=== PATIENT | female | born 1940 | race Caucasian/White ===

== ENCOUNTER 2019-01-06 16:14 | Emergency (ER) | payer MEDICARE, OTHER ==
[2019-01-06 16:25] VITALS: BP 190/87
[2019-01-06] MEDS ORDERED: Sodium Chloride 0.9% 10 ML Syringe FLUSH PRN (17:23)
--- NOTE | 2019-01-06 17:23 | EDM.PDOC ---
<Stephanie Hamilton M - Last Filed: 01/06/19 18:02> ED HPI GENERAL MEDICAL PROBLEM - General Chief Complaint: Chest Pain Stated Complaint: UPPER BACK PAIN AND CHEST PAIN Time Seen by Provider: 01/06/19 17:21 Source of Information: Reports: Patient, RN Notes Reviewed History Limitations: Reports: No Limitations - History of Present Illness INITIAL COMMENTS - FREE TEXT/NARRATIVE: 78-year-old female in to the ER with complaints of pain in her chest, epigastric region and shortness of breath. She has had this pain before after she had been on a trip [place] and developed a blood clot. She is not sure of the location but she was on Eliquis. For the past 2 weeks she has had complaints of back pain in the L4-6 region and did see her chiropractor and the pain was much improved. Now it is back for the pas 2 days. She has been using ice and heat but the pain is not any better. She does complain of some right are pain and numbness at times but it is better. She did try and get in with her PCP but was unable to. She sees Michell Dinus. Pt does have a hiatal hernia also that is causing her discomfort to the epigastric region and is causing her gas pressure. She has no pain in her calves but has a bad knee that she received pain injections in. She rates her pain a 5/10. Onset: Gradual Onset Date: 01/04/19 Duration: Hour(s): Location: Reports: Chest, Back Quality: Reports: Burning, Sharp - Related Data Allergies Allergy/AdvReac Type Severity Reaction Status Date / Time Sulfa (Sulfonamide Allergy Hives Verified 01/06/19 16:25 Antibiotics) Home Meds: Home Meds Losartan Potassium 25 mg PO DAILY 03/06/14 [History] ED ROS GENERAL - Review of Systems Review Of Systems: See Below Constitutional: Reports: No Symptoms HEENT: Reports: No Symptoms Respiratory: Reports: Shortness of Breath, Pleuritic Chest Pain (pain following the b) Cardiovascular: Reports: Chest Pain, Blood Pressure Problem Endocrine: Reports: No Symptoms GI/Abdominal: Reports: Abdominal Pain (slight discomfort from a hiatal hernia that is causing belching) : Reports: No Symptoms Musculoskeletal: Reports: Back Pain Skin: Reports: No Symptoms Neurological: Reports: No Symptoms Psychiatric: Reports: No Symptoms Hematologic/Lymphatic: Reports: No Symptoms Immunologic: Reports: No Symptoms ED EXAM, GENERAL - Physical Exam Exam: See Below Exam Limited By: No Limitations General Appearance: Alert, WD/WN, No Apparent Distress Ears: Normal External Exam, Normal Canal, Hearing Grossly Normal, Normal TMs Nose: Normal Inspection, Normal Mucosa Throat/Mouth: Normal Inspection, Normal Lips Head: Atraumatic, Normocephalic Neck: Normal Inspection, Supple, Non-Tender, Full Range of Motion Respiratory/Chest: No Respiratory Distress, Lungs Clear, Normal Breath Sounds, No Accessory Muscle Use, Other (pain with breathing and taking a deep breath. ) Cardiovascular: Normal Peripheral Pulses, Regular Rate, Rhythm, No Edema, No Gallop, No JVD, No Murmur, No Rub GI/Abdominal: Normal Bowel Sounds, Soft, No Organomegaly, No Distention, No Abnormal Bruit, No Mass, Tender (Female) Exam: Deferred Back Exam: Normal Inspection, Full Range of Motion, Other (pain along the bra line that hurts with inspiration and with movement. No pain on palpation.) Extremities: Normal Inspection, Normal Range of Motion, No Pedal Edema, Normal Capillary Refill Neurological: Alert, Oriented, CN II-XII Intact, Normal Cognition, Normal Gait, Normal Reflexes, No Motor/Sensory Deficits Psychiatric: Normal Affect, Normal Mood Skin Exam: Warm, Dry, Normal Color, No Rash Lymphatic: No Adenopathy Course - Vital Signs Last Recorded V/S: Last Vital Signs Temp 97.0 F 01/06/19 16:22 Pulse 95 01/06/19 16:22 Resp 11 L 01/06/19 16:22 BP 190/87 H 01/06/19 16:22 Pulse Ox 97 01/06/19 16:22 - Orders/Labs/Meds Orders: Active Orders 24 hr Category Date Time Status EKG 12 Lead [EKG Documentation Completion] [RC] STAT Care 01/06/19 17:23 Active Peripheral IV Care [RC] . DIRECTED Care 01/06/19 17:24 Active Peripheral IV Insertion Adult [OM.PC] Stat Oth 01/06/19 17:24 Ordered Labs: Laboratory Tests 01/06/19 01/06/19 01/06/19 Range/Units 17:40 17:40 17:40 WBC 5.69 (3.98-10.04) K/mm3 RBC 4.53 (3.98-5.22) M/mm3 Hgb 13.8 (11.2-15.7) gm/L Hct 41.9 (34.1-44.9) % MCV 92.5 (79.4-94.8) fl MCH 30.5 (25.6-32.2) pg MCHC 32.9 (32.2-35.5) g/dl RDW Std Deviation 41.7 (36.4-46.3) fL Plt Count 273 (182-369) K/mm3 MPV 9.5 (9.4-12.3) fl Neut % (Auto) 54.8 (34.0-71.1) % Lymph % (Auto) 32.0 (19.3-51.7) % Emmons % (Auto) 11.1 (4.7-12.5) % Eos % (Auto) 1.2 (0.7-5.8) Baso % (Auto) 0.9 (0.1-1.2) % Neut # (Auto) 3.12 (1.56-6.13) K/mm3 Lymph # (Auto) 1.82 (1.18-3.74) K/mm3 Emmons # (Auto) 0.63 H (0.24-0.36) K/mm3 Eos # (Auto) 0.07 (0.04-0.36) K/mm3 Baso # (Auto) 0.05 (0.01-0.08) K/mm3 D-Dimer, Quantitative 0.44 (0.19-0.50) mg/L Sodium 141 (136-145) mEq/L Potassium 3.8 (3.5-5.1) mEq/L Chloride 104 (98-107) mEq/L Carbon Dioxide 27 (21-32) mEq/L Anion Gap 13.8 (5-15) BUN 11 (7-18) mg/dL Creatinine 0.8 (0.55-1.02) mg/dL Est Cr Clr Drug Dosing TNP Estimated GFR (MDRD) > 60 (>60) mL/min BUN/Creatinine Ratio 13.8 L (14-18) Glucose 92 (83-115) mg/dL Calcium 9.2 (8.5-10.1) mg/dL Total Bilirubin 0.6 (0.2-1.0) mg/dL AST 22 (15-37) U/L ALT 32 (14-59) U/L Alkaline Phosphatase 87 (46-116) U/L Troponin I < 0.017 (0.00-0.056) ng/mL Total Protein 7.2 (6.4-8.2) g/dl Albumin 3.8 (3.4-5.0) g/dl Globulin 3.4 gm/dL Albumin/Globulin Ratio 1.1 (1-2) Meds: Medications Discontinued Medications Generic Name Dose Route Start Last Admin Trade Name Freq PRN Reason Stop Dose Admin Sodium Chloride 10 ml 01/06/19 17:23 01/06/19 17:40 Saline Flush FLUSH 10 ml ASDIRECTED PRN Administration Keep Vein Open Departure - Departure Disposition: Home, Self-Care 01 Clinical Impression: Atypical chest pain Referrals: Clotilde Velazquez PA [Primary Care Provider] - Forms: ED Department Discharge Additional Instructions: Continue current medications as prescribed, check your blood pressure twice daily and keep a record for Michell. See Michell at clinic this next Wednesday as planned. Maalox, Mylanta or times if you do seem to be having heartburn discomfort. Consider Pepcid 20 mg daily, available OTC if it seems like you're having more heartburn than usual. Clear liquids until tomorrow noon, than very careful bland diet as tolerated. Return to ED as needed if symptoms worsening in any way. - My Orders Last 24 Hours: My Active Orders 01/06/19 17:23 EKG 12 Lead [EKG Documentation Completion] [RC] STAT 01/06/19 17:24 Peripheral IV Care [RC] . DIRECTED Peripheral IV Insertion Adult [OM.PC] Stat - Assessment/Plan Last 24 Hours: My Active Orders 01/06/19 17:23 EKG 12 Lead [EKG Documentation Completion] [RC] STAT 01/06/19 17:24 Peripheral IV Care [RC] . DIRECTED Peripheral IV Insertion Adult [OM.PC] Stat <Valente Evans - Last Filed: 01/07/19 13:37> ED HPI GENERAL MEDICAL PROBLEM Chest Pain Score (Numeric/FACES): 5 Past Medical History Cardiovascular History: Reports: Blood Clots/VTE/DVT, Hypertension Musculoskeletal History: Reports: Other (See Below) Other Musculoskeletal History: left knee issues; back surgery - Past Surgical History GI Surgical History: Reports: Appendectomy Female Surgical History: Reports: Section, Hysterectomy Social & Family History - Tobacco Use Smoking Status *Q: Former Smoker Used Tobacco, but Quit: Yes Month/Year Tobacco Last Used: 53 yr - Caffeine Use Caffeine Use: Reports: Coffee, Tea - Recreational Drug Use Recreational Drug Use: No Course - Orders/Labs/Meds Orders: Active Orders 24 hr Category Date Time Status EKG 12 Lead [EKG Documentation Completion] [RC] STAT Care 01/06/19 17:23 Active Peripheral IV Care [RC] . DIRECTED Care 01/06/19 17:24 Active Peripheral IV Insertion Adult [OM.PC] Stat Oth 01/06/19 17:24 Ordered Labs: Laboratory Tests 01/06/19 01/06/19 01/06/19 Range/Units 17:40 17:40 17:40 WBC 5.69 (3.98-10.04) K/mm3 RBC 4.53 (3.98-5.22) M/mm3 Hgb 13.8 (11.2-15.7) gm/L Hct 41.9 (34.1-44.9) % MCV 92.5 (79.4-94.8) fl MCH 30.5 (25.6-32.2) pg MCHC 32.9 (32.2-35.5) g/dl RDW Std Deviation 41.7 (36.4-46.3) fL Plt Count 273 (182-369) K/mm3 MPV 9.5 (9.4-12.3) fl Neut % (Auto) 54.8 (34.0-71.1) % Lymph % (Auto) 32.0 (19.3-51.7) % Emmons % (Auto) 11.1 (4.7-12.5) % Eos % (Auto) 1.2 (0.7-5.8) Baso % (Auto) 0.9 (0.1-1.2) % Neut # (Auto) 3.12 (1.56-6.13) K/mm3 Lymph # (Auto) 1.82 (1.18-3.74) K/mm3 Emmons # (Auto) 0.63 H (0.24-0.36) K/mm3 Eos # (Auto) 0.07 (0.04-0.36) K/mm3 Baso # (Auto) 0.05 (0.01-0.08) K/mm3 D-Dimer, Quantitative 0.44 (0.19-0.50) mg/L Sodium 141 (136-145) mEq/L Potassium 3.8 (3.5-5.1) mEq/L Chloride 104 (98-107) mEq/L Carbon Dioxide 27 (21-32) mEq/L Anion Gap 13.8 (5-15) BUN 11 (7-18) mg/dL Creatinine 0.8 (0.55-1.02) mg/dL Est Cr Clr Drug Dosing TNP Estimated GFR (MDRD) > 60 (>60) mL/min BUN/Creatinine Ratio 13.8 L (14-18) Glucose 92 (83-115) mg/dL Calcium 9.2 (8.5-10.1) mg/dL Total Bilirubin 0.6 (0.2-1.0) mg/dL AST 22 (15-37) U/L ALT 32 (14-59) U/L Alkaline Phosphatase 87 (46-116) U/L Troponin I < 0.017 (0.00-0.056) ng/mL Total Protein 7.2 (6.4-8.2) g/dl Albumin 3.8 (3.4-5.0) g/dl Globulin 3.4 gm/dL Albumin/Globulin Ratio 1.1 (1-2) Meds: Medications Discontinued Medications Generic Name Dose Route Start Last Admin Trade Name Freq PRN Reason Stop Dose Admin Sodium Chloride 10 ml 01/06/19 17:23 01/06/19 17:40 Saline Flush FLUSH 10 ml ASDIRECTED PRN Administration Keep Vein Open - Re-Assessments/Exams Free Text/Narrative Re-Assessment/Exam: 01/06/19 19:09 Hx and exam was done J LAURA Villa and myself. I have also examined patient and taken hx. I agree with hx and exam as documented. Her chest x-ray looks fine with what looks like a very small amount of atelectasis left base. No visible infiltrate. Heart size is normal. Troponin and d-dimer did come back normal, white blood count normal other labs relatively normal. Discharge instructions as documented. Departure - Departure Time of Disposition: 19:20 Reason for Transfer *Q: Other (Atypical chest pain) Condition: Fair - My Orders Last 24 Hours: My Active Orders 01/06/19 17:23 EKG 12 Lead [EKG Documentation Completion] [RC] STAT 01/06/19 17:24 Peripheral IV Care [RC] . DIRECTED Peripheral IV Insertion Adult [OM.PC] Stat - Assessment/Plan Last 24 Hours: My Active Orders 01/06/19 17:23 EKG 12 Lead [EKG Documentation Completion] [RC] STAT 01/06/19 17:24 Peripheral IV Care [RC] . DIRECTED Peripheral IV Insertion Adult [OM.PC] Stat
--- NOTE | 2019-01-07 10:59 | CR ---
Chest: Portable view of the chest was obtained. Comparison: Prior chest x-ray of 09/20/10. Minimal discoid atelectasis is noted within both lung bases. Lungs otherwise are clear. Heart size is normal. Tortuous thoracic aorta is incidentally noted. Bony structures are osteopenic. Impression: 1. Incidental findings. Nothing acute is appreciated on portable chest x-ray. Diagnostic code #2
== END 2019-01-06 19:31 | disposition home or self-care (01) ==
LOC: JD.ED 16:14
DX: R07.89 Other chest pain (principal); I10 Essential (primary) hypertension; Z87.891 Personal history of nicotine dependence; Z88.2 Allergy status to sulfonamides; Z88.1 Allergy status to other antibiotic agents
CPT/HCPCS: 36415; 71045; 71045-26; 80053; 84484; 85025; 85379; 93005; 93010; 99284; 99285-25

== ENCOUNTER 2019-08-07 06:50 | Day surgery (SDC) | payer MEDICARE, OTHER ==
[~2019-08-07 06:50] MED LIST: Acetaminophen 325 MG Tab PO SCH; Cyclobenzaprine 10 MG Tab PO PRN; Lidocaine 1%/Sod Bicarbonate in NS 8.4% 1 ML Syringe IDERM PRN; Pregabalin 25 MG Cap PO SCH; Sodium Chloride 0.9% 10 ML Syringe FLUSH PRN; oxyCODONE ER 10 MG TAB.ER PO SCH
[2019-08-07] MEDS: ceFAZolin 1 GM Vial ONE ×2 (07:26→09:24)
[2019-08-07] MEDS: Bupivacaine 0.25% 10 ML SDV ONE ×2 (07:26→09:26)
[2019-08-07] MEDS: Iodine/Sodium Iodide 2% Tincture 30 ML Bottle ONE ×2 (07:27→09:23)
[2019-08-07] MEDS: Vancomycin 1 GM SDV ONE ×2 (07:29→09:29)
[2019-08-07] MEDS: Lactated Ringers 1,000 ML IV SCH ×2 (07:30→10:30)
--- NOTE | 2019-08-07 07:39 | PCM.PREANE ---
Preanesthetic Assessment - Procedure Proposed Procedure: left total knee athroplasty - Anesthesia/Transfusion/Family Hx Anesthesia History: Prior Anesthesia Reaction Type of Anesthesia Reaction: Excessive Nausea/Vomiting (nausea and vomiting with back surgery in 79) Family History of Anesthesia Reaction: No Transfusion History: No Prior Transfusion(s) Intubation History: Unknown - Review of Systems General: No Symptoms, Other (cold sore on lower lip ) Pulmonary: No Symptoms Cardiovascular: No Symptoms Gastrointestinal: No Symptoms, Other (GERD under control ) Neurological: No Symptoms, Tingling (left leg ) Other: Reports: None (blood clot history ) - Physical Assessment NPO Status Date: 08/06/19 NPO Status Time: 21:30 Vital Signs: Last Vital Signs Temp 36.6 C 08/07/19 07:05 Pulse 108 H 08/07/19 07:05 Resp 16 08/07/19 07:05 BP 158/91 H 08/07/19 07:05 Pulse Ox 97 08/07/19 07:05 Height: 1.57 m Weight: 67.132 kg ASA Class: 3 Mental Status: Alert & Oriented x3 Airway Class: Mallampati = 2 Dentition: Reports: Normal Dentition Thyro-Mental Finger Breadths: 2 Mouth Opening Finger Breadths: 4 ROM/Head Extension: Full Lungs: Clear to Auscultation, Normal Respiratory Effort Cardiovascular: Regular Rate, Regular Rhythm, Tachycardia - Lab Values: Laboratory Last Values MRSA (PCR) Negative 07/26/19 14:39 - Allergies Allergies/Adverse Reactions: Allergies Allergy/AdvReac Type Severity Reaction Status Date / Time Sulfa (Sulfonamide Allergy Hives Verified 08/04/19 16:30 Antibiotics) - Blood Blood Available: No - Anesthesia Plan Pre-Op Medication Ordered: None - Acknowledgements Anesthesia Type Planned: Spinal Pt an Appropriate Candidate for the Planned Anesthesia: Yes Alternatives and Risks of Anesthesia Discussed w Pt/Guardian: Yes Pt/Guardian Understands and Agrees with Anesthesia Plan: Yes PreAnesthesia Questionnaire HEENT History: Reports: Allergic Rhinitis, Other (See Below) Other HEENT History: sinus congestion Cardiovascular History: Reports: Blood Clots/VTE/DVT, Hypertension, Other (See Below) Other Cardiovascular History: edema, peripheral artery disease Respiratory History: Reports: Sleep Apnea Other Respiratory History: elevated d-dimer, PE Gastrointestinal History: Reports: GERD, Hiatal Hernia Genitourinary History: Reports: None [employer] History: Reports: None Musculoskeletal History: Reports: Arthritis, Other (See Below) Other Musculoskeletal History: left knee issues; back surgery, lumbar back pain , knee pain, left heel pain Neurological History: Reports: None Psychiatric History: Reports: None Endocrine/Metabolic History: Reports: None Hematologic History: Reports: None Immunologic History: Reports: None Oncologic (Cancer) History: Reports: None Dermatologic History: Reports: Other (See Below) Other Dermatologic History: actinic keratosis, skin lesion, skin tag - Past Surgical History Head Surgeries/Procedures: Reports: None HEENT Surgical History: Reports: Cataract Surgery Cardiovascular Surgical History: Reports: None Respiratory Surgical History: Reports: None GI Surgical History: Reports: Appendectomy, Colonoscopy Female Surgical History: Reports: Section, Hysterectomy, Tubal Ligation Male Surgical History: Reports: None Endocrine Surgical History: Reports: None Neurological Surgical History: Reports: None Musculoskeletal Surgical History: Reports: Other (See Below) Other Musculoskeletal Surgeries/Procedures:: foot surgery, low back surgery Oncologic Surgical History: Reports: None - SUBSTANCE USE Smoking Status *Q: Never Smoker Recreational Drug Use History: No - HOME MEDS Home Medications: Home Meds Cholecalciferol (Vitamin D3) [Vitamin D3] 5,000 unit PO DAILY 08/04/19 [History] Fish Oil/[place]-3 Fatty Acids [Fish Oil 1,000 MG] 1 gm PO DAILY 08/04/19 [History ] Losartan Potassium 50 mg PO DAILY 08/04/19 [History] Lutein/Minerals/Vit A,C & E [Ocuvite] 1 tab PO DAILY 08/04/19 [History] Magnesium 250 mg PO DAILY 08/04/19 [History] Ubidecarenone [Coq-10] 100 mg PO DAILY 08/04/19 [History] hydroCHLOROthiazide [Hydrochlorothiazide] 12.5 mg PO DAILY 08/04/19 [History] Acetaminophen [Tylenol Extra Strength] 500 mg PO ASDIRECTED PRN 08/07/19 [ History] - CURRENT (IN HOUSE) MEDS Current Meds: Current Medications Acetaminophen (Tylenol) 975 mg PO ONETIME JEREMIAH Stop: 08/07/19 12:00 Last Admin: 08/07/19 07:10 Dose: 975 mg Bisacodyl (Dulcolax) 5 mg PO DAILY PRN PRN Reason: Constipation Morphine Sulfate 8 mg/Epinephrine HCl 0.3 mg/Cefuroxime Sodium 750 mg/Ketorolac Tromethamine 30 mg/Sodium Chloride 27.9 ml 0 mg .XX ONETIME ONE Stop: 08/07/19 08:46 Cyclobenzaprine HCl (Flexeril) 5 mg PO BID PRN PRN Reason: Spasms Docusate Sodium (Colace) 100 mg PO BID [facility] Famotidine (Pepcid) 20 mg PO Q12H [facility] Lactated Ringer's (Ringers, Lactated) 1,000 mls @ 125 mls/hr IV ASDIRECTED [facility] Cefazolin Sodium/Dextrose 2 gm (/ Premix) 50 mls @ 100 mls/hr IV Q8H [facility] Stop: 08/08/19 08:29 Ketorolac Tromethamine (Toradol) 15 mg IVPUSH Q6H PRN PRN Reason: Pain Lidocaine/Sodium Bicarbonate (Buffered Lidocaine 1% In Ns 8.4%) 0.25 ml IDERM ONETIME PRN PRN Reason: Prior to IV Start Magnesium Hydroxide (Milk Of Magnesia) 30 ml PO BID PRN PRN Reason: Constipation Morphine Sulfate (Morphine) 2 mg IVPUSH Q2H PRN PRN Reason: Breakthrough Pain Naloxone HCl (Narcan) 0.1 mg IVPUSH Q5M PRN PRN Reason: Oversedation Ondansetron HCl (Zofran) 4 mg IVPUSH Q6H PRN PRN Reason: Nausea/Vomiting Oxycodone HCl (Oxycontin) 10 mg PO ONETIME [facility] Stop: 08/07/19 12:00 Last Admin: 08/07/19 07:10 Dose: 10 mg Oxycodone/Acetaminophen (Percocet 325-5 Mg) 1 - 2 tab PO Q4H PRN PRN Reason: Pain Pregabalin (Lyrica) 50 mg PO ONETIME [facility] Stop: 08/07/19 12:00 Last Admin: 08/07/19 07:10 Dose: 50 mg Rivaroxaban (Xarelto) 10 mg PO DAILY [facility] Senna (Senna) 8.6 mg PO BID PRN PRN Reason: Constipation Sodium Chloride (Saline Flush) 10 ml FLUSH ASDIRECTED PRN PRN Reason: Keep Vein Open Discontinued Medications Bupivacaine HCl (Sensorcaine-Mpf 0.25%) Confirm Administered Dose 30 ml .ROUTE .STK-MED ONE Stop: 08/07/19 07:01 Cefazolin Sodium (Ancef) Confirm Administered Dose 2 gm .ROUTE .[facility]-MED ONE Stop: 08/07/19 07:01 Iodine (Iodine 2% Mild Tincture) Confirm Administered Dose 30 ml .ROUTE .ST- MED ONE Stop: 08/07/19 07:01 Tranexamic Acid (Cyklokapron) Confirm Administered Dose 1,000 mg .ROUTE .ST- MED ONE Stop: 08/07/19 07:00 Vancomycin HCl (Vancomycin) Confirm Administered Dose 1 gm .ROUTE .ST-MED ONE Stop: 08/07/19 07:01
[2019-08-07] MEDS ORDERED: Ondansetron 4 MG/2 ML SDV IVPUSH PRN (07:40)
[2019-08-07] MEDS ORDERED: diphenhydrAMINE 50 MG/ML SDV IVPUSH PRN (07:40)
[2019-08-07] MEDS ORDERED: fentaNYL 100 MCG/2 ML SDV IVPUSH PRN (07:40)
[2019-08-07] MEDS ORDERED: Propofol 200 MG/20 ML SDV ONE ×4 (07:56→13:16)
[2019-08-07] MEDS ORDERED: Ondansetron 4 MG/2 ML SDV ONE (07:57)
[2019-08-07] MEDS ORDERED: Lidocaine 1% 4 ML ONE (07:57)
[2019-08-07] MEDS ORDERED: ceFAZolin 1 GM Vial ONE (08:08)
[2019-08-07] MEDS ORDERED: Esmolol 100 MG/10 ML SDV ONE (08:32)
[2019-08-07] MEDS ORDERED: Morphine 8 MG, EPINEPHrine 0.3 MG, Cefuroxime 750 MG, Ketorolac 30 MG, Sodium Chloride ... ONE ×5 (08:45)
[2019-08-07] MEDS ORDERED: EPINEPHrine 1 MG/ML SDV ONE (08:53)
[2019-08-07] MEDS ORDERED: Ropivacaine 0.5% 5 MG/ML 30 ML SDV ONE (08:54)
[2019-08-07] MEDS ORDERED: Bisacodyl 5 MG Tab PO PRN (09:00)
[2019-08-07] MEDS ORDERED: Magnesium Hydroxide 400 MG/5 ML Susp 30 ML Cup PO PRN (09:00)
[2019-08-07] MEDS ORDERED: Sennosides 8.6 MG Tab PO PRN (09:00)
[2019-08-07] MEDS ORDERED: Naloxone 0.4 MG/ML SDV IVPUSH PRN (09:00)
[2019-08-07] MEDS ORDERED: Morphine 2 MG/ML Syringe IVPUSH PRN (09:00)
[2019-08-07] MEDS ORDERED: Phenylephrine/Normal Saline 100 MCG/ML 10 ML Syringe ONE (09:09)
[2019-08-07] MEDS ORDERED: Lactated Ringers 1,000 ML ONE ×2 (09:11→13:15)
--- NOTE | 2019-08-07 10:10 | PCM.POSTAN ---
POST ANESTHESIA ASSESSMENT - MENTAL STATUS Mental Status: Alert - VITAL SIGNS Vital Signs: Last Vital Signs Temp 36.6 C 08/07/19 09:58 Pulse 88 08/07/19 09:58 Resp 15 08/07/19 09:58 BP 101/62 08/07/19 09:58 Pulse Ox 98 08/07/19 09:58 - RESPIRATORY Respiratory Status: Respiratory Rate WNL, Airway Patent, O2 Saturation Stable - CARDIOVASCULAR CV Status: Pulse Rate WNL, Blood Pressure Stable - GASTROINTESTINAL GI Status: No Symptoms - PAIN Pain Score: 0 - POST OP HYDRATION Hydration Status: Adequate & Stable
--- NOTE | 2019-08-07 10:36 | PCM.SN ---
- Free Text/Narrative Note: Left selective femoral nerve block at the adductor canal for post-procedure pain control under US guidance requested by Dr. Ramirez. Time Out: 1007 Start: 1007 End: 1023 Chart reviewed. Consent signed. Questions answered. Appropriate monitors applied. Time out performed. Left mid-shaft femur identified with ultrasound, scanning medially of femur, the femoral artery in the adductor canal visualized , and the femoral nerve located laterally to the artery. The skin was prepped lateral to the ultrasound probe with chlorahexadine times two. The 21ga 4 insulated block needle was inserted under direct ultrasound guidance into the adductor canal. 25mL of 0.5% ropivacaine with 1:200,000 epinephrine was injected circumferentially around the nerve with intermittent negative aspiration noted. Patient tolerated the procedure well. Sterile technique noted along with sterile gloves, mask, and sterile probe cover. See picture on progress note and vital signs on nurses notes. Block completed in PACU. Mario Cao CRNA
--- NOTE | 2019-08-07 11:37 | CR ---
Left knee: AP and lateral views of the left knee were obtained. Comparison: Previous left knee radiographic study of 10/11/17. Findings: Left knee prosthesis is seen. Components are aligned. Soft tissue air is noted from the surgical procedure. Underlying bony structures are intact. Impression: 1. Satisfactory postop radiographic appearance of recently placed left knee prosthesis. Diagnostic code #2
[2019-08-07] MEDS: Acetaminophen/oxyCODONE 325-5 MG Tab PO PRN ×2 (12:51→20:09)
[2019-08-07] MEDS: Ondansetron 4 MG/2 ML SDV IVPUSH PRN (12:53)
[2019-08-07] MEDS ORDERED: Scopolamine 1.5 MG Transdermal Patch TRDERM PRN (13:20)
[2019-08-07] MEDS: ceFAZolin 2 GM in Premix Bag 1 BAG IV SCH (16:32)
[2019-08-07] MEDS: Benzocaine/Cetylpyridinium/Menthol Lozenge MUCMEM PRN ×2 (18:02→20:09)
[2019-08-07] MEDS: Famotidine 20 MG Tab PO SCH (20:09)
[2019-08-07] MEDS: Docusate Sodium 100 MG Cap PO SCH (20:09)
[2019-08-07] MEDS: Ketorolac 15 MG/ML SDV IVPUSH PRN (20:11)
[2019-08-08] MEDS: ceFAZolin 2 GM in Premix Bag 1 BAG IV SCH ×2 (00:56→08:36)
[2019-08-08] MEDS: Acetaminophen/oxyCODONE 325-5 MG Tab PO PRN ×2 (01:26→14:07)
[2019-08-08] MEDS: Ondansetron 4 MG/2 ML SDV IVPUSH PRN ×2 (01:33→09:46)
[2019-08-08] MEDS: Ketorolac 15 MG/ML SDV IVPUSH PRN (06:36)
--- NOTE | 2019-08-08 08:06 | PCM.SURGPN ---
- General Info Date of Service: 08/08/19 POD#: 1 Functional Status: Reports: Pain Controlled, Tolerating Diet, Ambulating, Urinating, Incentive Spirometry, Other (The pt has nausea earlier today and this has improved. ) - Patient Data Vitals - Most Recent: Last Vital Signs Temp 97.9 F 08/08/19 04:00 Pulse 82 08/08/19 04:00 Resp 18 08/08/19 04:00 BP 112/60 08/08/19 04:00 Pulse Ox 98 08/08/19 04:00 Weight - Most Recent: 148 lb I&O - Last 24 Hours: Intake & Output 08/07/19 08/08/19 08/08/19 22:59 06:59 14:59 Intake Total 2210 850 Output Total 300 1450 Balance 1910 -600 Lab Results Last 24 Hrs: Laboratory Results - last 24 hr 08/08/19 08/08/19 Range/Units 05:45 05:45 WBC 14.96 H (3.98-10.04) K/mm3 RBC 3.31 L (3.98-5.22) M/mm3 Hgb 10.0 L D (11.2-15.7) gm/dl Hct 31.4 L (34.1-44.9) % MCV 94.9 H (79.4-94.8) fl MCH 30.2 (25.6-32.2) pg MCHC 31.8 L (32.2-35.5) g/dl RDW Std Deviation 42.7 (36.4-46.3) fL Plt Count 207 D (182-369) K/mm3 MPV 10.2 (9.4-12.3) fl Sodium 138 (136-145) mEq/L Potassium 4.2 (3.5-5.1) mEq/L Chloride 104 (98-107) mEq/L Carbon Dioxide 29 (21-32) mEq/L Anion Gap 9.2 (5-15) BUN 19 H (7-18) mg/dL Creatinine 0.8 (0.55-1.02) mg/dL Est Cr Clr Drug Dosing 45.62 mL/min Estimated GFR (MDRD) > 60 (>60) mL/min BUN/Creatinine Ratio 23.8 H (14-18) Glucose 115 (83-115) mg/dL Calcium 8.4 L (8.5-10.1) mg/dL Total Bilirubin 0.4 (0.2-1.0) mg/dL AST 18 (15-37) U/L ALT 22 (14-59) U/L Alkaline Phosphatase 58 (46-116) U/L Total Protein 5.6 L (6.4-8.2) g/dl Albumin 2.8 L (3.4-5.0) g/dl Globulin 2.8 gm/dL Albumin/Globulin Ratio 1.0 (1-2) Med Orders - Current: Current Medications Benzocaine/Menthol (Cepacol Sore Throat) 1 lozenge MUCMEM Q2HR PRN PRN Reason: Sore Throat Last Admin: 08/07/19 20:09 Dose: 1 lozenge Bisacodyl (Dulcolax) 5 mg PO DAILY PRN PRN Reason: Constipation Cholecalciferol (Vitamin D3) 5,000 unit PO DAILY [facility] Cyclobenzaprine HCl (Flexeril) 5 mg PO BID PRN PRN Reason: Spasms Docusate Sodium (Colace) 100 mg PO BID [facility] Last Admin: 08/07/19 20:09 Dose: 100 mg Famotidine (Pepcid) 20 mg PO Q12H [facility] Last Admin: 08/07/19 20:09 Dose: 20 mg Hydrochlorothiazide (Hydrochlorothiazide) 12.5 mg PO DAILY [facility] Cefazolin Sodium/Dextrose 2 gm (/ Premix) 50 mls @ 100 mls/hr IV Q8H [facility] Stop: 08/08/19 08:29 Last Admin: 08/08/19 00:56 Dose: 100 mls/hr Losartan Potassium (Cozaar) 50 mg PO DAILY [facility] Magnesium Hydroxide (Milk Of Magnesia) 30 ml PO BID PRN PRN Reason: Constipation Morphine Sulfate (Morphine) 2 mg IVPUSH Q2H PRN PRN Reason: Breakthrough Pain Naloxone HCl (Narcan) 0.1 mg IVPUSH Q5M PRN PRN Reason: Oversedation Ondansetron HCl (Zofran) 4 mg IVPUSH Q6H PRN PRN Reason: Nausea/Vomiting Last Admin: 08/08/19 01:33 Dose: 4 mg Oxycodone/Acetaminophen (Percocet 325-5 Mg) 1 - 2 tab PO Q4H PRN PRN Reason: Pain Last Admin: 08/08/19 01:26 Dose: 2 tab Rivaroxaban (Xarelto) 10 mg PO DAILY [facility] Scopolamine (Transderm-Scop) 1.5 mg TRDERM Q72H PRN PRN Reason: Nausea Last Admin: 08/08/19 06:36 Dose: 1.5 mg Senna (Senna) 8.6 mg PO BID PRN PRN Reason: Constipation Sodium Chloride (Saline Flush) 10 ml FLUSH ASDIRECTED PRN PRN Reason: Keep Vein Open Vit A/Vit C/Vit E/Selen/Cu/Zn/Lutei (Icaps Mv) 1 tab PO DAILY [facility] Discontinued Medications Acetaminophen (Tylenol) 975 mg PO ONETIME [facility] Stop: 08/07/19 12:00 Last Admin: 08/07/19 07:10 Dose: 975 mg Bupivacaine HCl (Sensorcaine-Mpf 0.25%) Confirm Administered Dose 30 ml .ROUTE .STK-MED ONE Stop: 08/07/19 07:01 Last Admin: 08/07/19 09:26 Dose: 30 ml Cefazolin Sodium (Ancef) Confirm Administered Dose 2 gm .ROUTE .STK-MED ONE Stop: 08/07/19 07:01 Last Admin: 08/07/19 09:24 Dose: 2 gm Cefazolin Sodium (Ancef) Confirm Administered Dose 2 gm .ROUTE .STK-MED ONE Stop: 08/07/19 08:09 Morphine Sulfate 8 mg/Epinephrine HCl 0.3 mg/Cefuroxime Sodium 750 mg/Ketorolac Tromethamine 30 mg/Sodium Chloride 27.9 ml 0 mg .XX ONETIME ONE Stop: 08/07/19 08:46 Last Admin: 08/07/19 13:28 Dose: Not Given Diphenhydramine HCl (Benadryl) 25 mg IVPUSH Q6H PRN PRN Reason: pruritis Stop: 08/07/19 18:00 Epinephrine HCl (Adrenalin) Confirm Administered Dose 1 mg .ROUTE .STK-MED ONE Stop: 08/07/19 08:54 Esmolol HCl (Esmolol) Confirm Administered Dose 100 mg .ROUTE .STK-MED ONE Stop: 08/07/19 08:33 Fentanyl (Sublimaze) 50 mcg IVPUSH Q5M PRN PRN Reason: Pain Stop: 08/07/19 18:00 Glycopyrrolate () Confirm Administered Dose 1 mg .ROUTE .STK-MED ONE Stop: 08/07/19 09:11 Lactated Ringer's (Ringers, Lactated) 1,000 mls @ 125 mls/hr IV ASDIRECTED [facility] Last Admin: 08/07/19 10:30 Dose: 125 mls/hr Lidocaine HCl (Xylocaine-Mpf 1%) Confirm Administered Dose 4 mls @ as directed .ROUTE .STK-MED ONE Stop: 08/07/19 07:58 Lactated Ringer's (Ringers, Lactated) Confirm Administered Dose 1,000 mls @ as directed .ROUTE .STK-MED ONE Stop: 08/07/19 09:12 Lactated Ringer's (Ringers, Lactated) Confirm Administered Dose 1,000 mls @ as directed .ROUTE .STK-MED ONE Stop: 08/07/19 13:16 Iodine (Iodine 2% Mild Tincture) Confirm Administered Dose 30 ml .ROUTE .STK- MED ONE Stop: 08/07/19 07:01 Last Admin: 08/07/19 09:23 Dose: 30 ml Ketorolac Tromethamine (Toradol) 15 mg IVPUSH Q6H PRN PRN Reason: Pain Last Admin: 08/08/19 06:36 Dose: 15 mg Lidocaine HCl (Xylocaine-Mpf 1%) Confirm Administered Dose 5 ml .ROUTE .STK-MED ONE Stop: 08/07/19 12:10 Lidocaine/Sodium Bicarbonate (Buffered Lidocaine 1% In Ns 8.4%) 0.25 ml IDERM ONETIME PRN PRN Reason: Prior to IV Start Last Admin: 08/07/19 07:29 Dose: 0.25 ml Non-Formulary Medication (Levocarnitine Tartrate [L-Carnitine]) 500 mg PO DAILY [facility] Non-Formulary Medication (Magnesium [Magnesium]) 250 mg PO DAILY [facility] Non-Formulary Medication (Red Yeast Rice [Red Yeast Rice]) 1 tab PO DAILY [facility] Non-Formulary Medication (Ubidecarenone) 100 mg PO DAILY [facility] Ondansetron HCl (Zofran) 4 mg IVPUSH ONETIME PRN PRN Reason: Nausea/Vomiting Stop: 08/07/19 18:00 Ondansetron HCl (Zofran) Confirm Administered Dose 4 mg .ROUTE .STK-MED ONE Stop: 08/07/19 07:58 Oxycodone HCl (Oxycontin) 10 mg PO ONETIME [facility] Stop: 08/07/19 12:00 Last Admin: 08/07/19 07:10 Dose: 10 mg Phenylephrine HCl (Phenylephrine In Ns 100 Mcg/Ml) Confirm Administered Dose 1 mg .ROUTE .STK-MED ONE Stop: 08/07/19 09:10 Pregabalin (Lyrica) 50 mg PO ONETIME [facility] Stop: 08/07/19 12:00 Last Admin: 08/07/19 07:10 Dose: 50 mg Propofol (Diprivan 20 Ml) Confirm Administered Dose 200 mg .ROUTE .STK-MED ONE Stop: 08/07/19 07:57 Propofol (Diprivan 20 Ml) Confirm Administered Dose 200 mg .ROUTE .STK-MED ONE Stop: 08/07/19 08:59 Propofol (Diprivan 20 Ml) Confirm Administered Dose 200 mg .ROUTE .STK-MED ONE Stop: 08/07/19 12:48 Propofol (Diprivan 20 Ml) Confirm Administered Dose 200 mg .ROUTE .STK-MED ONE Stop: 08/07/19 13:17 Ropivacaine (Naropin 0.5%) Confirm Administered Dose 30 ml .ROUTE .STK-MED ONE Stop: 08/07/19 08:55 Tranexamic Acid (Cyklokapron) Confirm Administered Dose 1,000 mg .ROUTE .STK- MED ONE Stop: 08/07/19 07:00 Last Admin: 08/07/19 09:33 Dose: 1,000 mg Vancomycin HCl (Vancomycin) Confirm Administered Dose 1 gm .ROUTE .STK-MED ONE Stop: 08/07/19 07:01 Last Admin: 08/07/19 09:29 Dose: 1 gm - Exam Wound/Incisions: Dressing Dry and Intact General: Alert, Cooperative, No Acute Distress Lungs: Normal Respiratory Effort Extremities: Other (NVS intact for BLE. Ayse's negative.) - Problem List Review Problem List Initiated/Reviewed/Updated: Yes - My Orders Last 24 Hours: Active Orders 24 hr Category Date Time Status Cooling Warming Measures [RC] ASDIRECTED Care 08/07/19 07:40 Inactive Notify Provider [RC] ASDIRECTED Care 08/07/19 07:40 Active Pulse Oximetry [RC] ASDIRECTED Care 08/07/19 07:40 Active Ready for Discharge [RC] PER UNIT ROUTINE Care 08/08/19 08:03 Active Regular Diet [DIET] Diet 08/07/19 Lunch Active Acetaminophen/oxyCODONE [Percocet 325-5 MG] Med 08/07/19 09:00 Active 1 - 2 tab PO Q4H PRN Benzocaine/Cetylpyrd/Menthol [Cepacol Sore Throat] Med 08/07/19 17:36 Active 1 lozenge MUCMEM Q2HR PRN Bisacodyl [Dulcolax] Med 08/07/19 09:00 Active 5 mg PO DAILY PRN Cholecalciferol (Vitamin D3) [Vitamin D3] Med 08/08/19 09:00 Active 5,000 unit PO DAILY Docusate Sodium [Colace] Med 08/07/19 21:00 Active 100 mg PO BID Famotidine [Pepcid] Med 08/07/19 21:00 Active 20 mg PO Q12H Losartan [Cozaar] Med 08/08/19 09:00 Active 50 mg PO DAILY Magnesium Hydroxide [Milk of Magnesia] Med 08/07/19 09:00 Active 30 ml PO BID PRN Morphine Med 08/07/19 09:00 Active 2 mg IVPUSH Q2H PRN Multivitamins/Min/FA/Lut/Zeax [ICaps MV] Med 08/08/19 09:00 Active 1 tab PO DAILY Naloxone [Narcan] Med 08/07/19 09:00 Active 0.1 mg IVPUSH Q5M PRN Ondansetron [Zofran] Med 08/07/19 09:00 Active 4 mg IVPUSH Q6H PRN Rivaroxaban [Xarelto] Med 08/08/19 09:00 Active 10 mg PO DAILY Scopolamine [Transderm-Scop] Med 08/07/19 13:20 Active 1.5 mg TRDERM Q72H PRN Sennosides [Senna] Med 08/07/19 09:00 Active 8.6 mg PO BID PRN ceFAZolin [Ancef] 2 gm Med 08/07/19 16:00 Active Premix Bag 1 bag IV Q8H hydroCHLOROthiazide Med 08/08/19 09:00 Active 12.5 mg PO DAILY Medication Orders Benzocaine/Menthol (Cepacol Sore Throat) 1 lozenge MUCMEM Q2HR PRN PRN Reason: Sore Throat Last Admin: 08/07/19 20:09 Dose: 1 lozenge Admin: 08/07/19 18:02 Dose: 1 lozenge Bisacodyl (Dulcolax) 5 mg PO DAILY PRN PRN Reason: Constipation Cholecalciferol (Vitamin D3) 5,000 unit PO DAILY [facility] Cyclobenzaprine HCl (Flexeril) 5 mg PO BID PRN PRN Reason: Spasms Docusate Sodium (Colace) 100 mg PO BID [facility] Last Admin: 08/07/19 20:09 Dose: 100 mg Famotidine (Pepcid) 20 mg PO Q12H [facility] Last Admin: 08/07/19 20:09 Dose: 20 mg Hydrochlorothiazide (Hydrochlorothiazide) 12.5 mg PO DAILY [facility] Cefazolin Sodium/Dextrose 2 gm (/ Premix) 50 mls @ 100 mls/hr IV Q8H [facility] Stop: 08/08/19 08:29 Last Admin: 08/08/19 00:56 Dose: 100 mls/hr Infusion: 08/07/19 17:02 Dose: 100 mls/hr Admin: 08/07/19 16:32 Dose: 100 mls/hr Losartan Potassium (Cozaar) 50 mg PO DAILY [facility] Magnesium Hydroxide (Milk Of Magnesia) 30 ml PO BID PRN PRN Reason: Constipation Morphine Sulfate (Morphine) 2 mg IVPUSH Q2H PRN PRN Reason: Breakthrough Pain Naloxone HCl (Narcan) 0.1 mg IVPUSH Q5M PRN PRN Reason: Oversedation Ondansetron HCl (Zofran) 4 mg IVPUSH Q6H PRN PRN Reason: Nausea/Vomiting Last Admin: 08/08/19 01:33 Dose: 4 mg Admin: 08/07/19 12:53 Dose: 4 mg Oxycodone/Acetaminophen (Percocet 325-5 Mg) 1 - 2 tab PO Q4H PRN PRN Reason: Pain Last Admin: 08/08/19 01:26 Dose: 2 tab Admin: 08/07/19 20:09 Dose: 2 tab Admin: 08/07/19 12:51 Dose: 2 tab Rivaroxaban (Xarelto) 10 mg PO DAILY [facility] Scopolamine (Transderm-Scop) 1.5 mg TRDERM Q72H PRN PRN Reason: Nausea Last Admin: 08/08/19 06:36 Dose: 1.5 mg Senna (Senna) 8.6 mg PO BID PRN PRN Reason: Constipation Sodium Chloride (Saline Flush) 10 ml FLUSH ASDIRECTED PRN PRN Reason: Keep Vein Open Vit A/Vit C/Vit E/Selen/Cu/Zn/Lutei (Icaps Mv) 1 tab PO DAILY [facility] - Assessment Assessment (Free Text/Narrative):: POD#1 - left TKA - Plan Plan (Free Text/Narrative):: 1. Hgb 10.0. 2. Xarelto (personal hx VTE), frequent mobility, TEDs. 3. Discharge to home today. 4. Outpatient therapy. The pt's case was discussed with Dr. Ramirez.
[2019-08-08] MEDS: Docusate Sodium 100 MG Cap PO SCH (08:46)
[2019-08-08] MEDS: Famotidine 20 MG Tab PO SCH ×2 (08:50→13:17)
[2019-08-08] MEDS ORDERED: Hydrochlorothiazide 12.5 MG Cap PO SCH (09:00)
[2019-08-08] MEDS ORDERED: Non-Formulary Medication 1 Each (Ubidecarenone 100 MG) PO SCH (09:00)
[2019-08-08] MEDS ORDERED: Rivaroxaban 10 MG Tab PO SCH (09:00)
[2019-08-08] MEDS ORDERED: Non-Formulary Medication 1 Each (Magnesium [Magnesium] 250 MG) PO SCH (09:00)
[2019-08-08] MEDS ORDERED: LEVOCARNITINE TARTRATE 500 MG PO SCH (09:00)
[2019-08-08] MEDS ORDERED: Losartan 25 MG Tab PO SCH (09:00)
[2019-08-08] MEDS ORDERED: RED YEAST RICE PO SCH (09:00)
[2019-08-08] MEDS ORDERED: Multivitamins with Minerals/Folic Acid/Lutein/Zeaxanth Tab PO SCH (09:00)
[2019-08-08] MEDS ORDERED: Cholecalciferol (Vitamin D3) 5,000 UNIT Tab PO SCH (09:00)
--- NOTE | 2019-08-08 11:37 | PCM48HPAN ---
Post Anesthesia Note - EVALUATION WITHIN 48HRS OF ANESTHETIC Vital Signs in Normal Range: Yes Patient Participated in Evaluation: Yes Respiratory Function Stable: Yes Airway Patent: Yes Cardiovascular Function Stable: Yes Hydration Status Stable: Yes Pain Control Satisfactory: Yes Nausea and Vomiting Control Satisfactory: Yes (Very nauseated last evening, much better now with zofran. ) Mental Status Recovered: Yes Vital Signs: Last Vital Signs Temp 36.8 C 08/08/19 07:44 Pulse 61 08/08/19 07:44 Resp 16 08/08/19 07:44 BP 110/50 L 08/08/19 08:47 Pulse Ox 95 08/08/19 07:44
[2019-08-08] MEDS ORDERED: Sodium Chloride 0.9% 500 ML IV ONE (12:38)
[2019-08-08] MEDS ORDERED: Famotidine 20 MG/2 ML SDV IVPUSH ONE (13:00)
[2019-08-08 13:01] VITALS: BP 117/55
[2019-08-08 19:06] VITALS: PULSE 56
[2019-08-08] MEDS ORDERED: Famotidine 20 MG Tab PO SCH (21:00)
[2019-08-09] MEDS ORDERED: Famotidine 20 MG Tab PO SCH ×2 (09:00)
--- NOTE | 2019-08-11 09:01 | PCM.OPNOTE ---
- General Post-Op/Procedure Note Date of Surgery/Procedure: 08/07/19 Operative Procedure(s): left total knee arthroplasty Pre Op Diagnosis: left knee osteoarthrosis Post-Op Diagnosis: Same Anesthesia Technique: Local, MAC, Spinal Primary Surgeon: Jonah Ramirez Anesthesia Provider: Rosemarie Kapadia [employer] Laminator: Flor Rowan [employer] Laminator: Stefany Wheeler EBRomi in mLs: 600 Complications: None Condition: Good Free Text/Narrative:: size 4/4 9mm 29x9
--- NOTE | 2019-08-11 10:17 | OR ---
DATE OF OPERATION: 08/07/2019 SURGEON: Jonah Ramirez MD OPERATION PERFORMED: Left total knee arthroplasty. PREOPERATIVE DIAGNOSIS: Left total knee osteoarthrosis. POSTOPERATIVE DIAGNOSIS: Left total knee osteoarthrosis. ANESTHESIA: Local MAC with spinal. ANESTHESIA PROVIDER: Rosemarie Kapadia. ASSISTANTS: NELLY and Stefany Wheeler LPN. ESTIMATED BLOOD LOSS: 600 mL. COMPLICATIONS: None. CONDITION: Stable. IMPLANTS: 1. Joanna size 4 cemented PS femur. 2. Joanna size 4 cemented universal tibial base plate. 3. Joanna size 4 9 mm PS X3 polyethylene insert. 4. Joanna size 29 x 9 mm cemented asymmetric patella. DESCRIPTION OF PROCEDURE: The patient was identified in the preop holding area. Proper site was marked and identified by the surgeon. The patient was taken back to the operating theater. After adequate anesthesia, the patient's left lower extremity had a nonsterile tourniquet applied and it was sterilely prepped and draped in the usual sterile fashion. OR time-out was performed. The patient received 2 g IV Ancef. At this time, the left lower extremity was exsanguinated. Tourniquet was insufflated to 300 mmHg. Standard medial parapatellar incision was made. Medial parapatellar arthrotomy was created. Deep fibers of the MCL were raised and anterior fat pad was resected. At this time, attention was turned to the patella. Patella measured a 21, it was resected to a 13 for a 29 x 9 mm patella. Drill holes were then drilled and found to be in adequate position. The drill was then drilled in the distal femur and the intramedullary distal femoral cutting guide was then placed. 8 mm was resected off the distal femur and was found to be an adequate resection. Sizing guide was placed. It was found to be a size 4 cemented PS femur that was shown on the implant record at the beginning of this dictation. The drill holes were drilled for the epicondylar axis using Whitesides line and epicondyles as reference. At this time, the 4-in-1 cutting block was placed. An anterior posterior and anterior and posterior chamfer cuts were then completed. Box cut was completed at this time. Attention was turned to the tibia. The posterior medial lateral retractors were placed. The extramedullary tibial guide was placed. It was placed in the old footprint of the ACL. It was aligned with the center of the ankle and 0 degrees of slope, 9 mm was then resected off the unaffected side. There was found to be an acceptable reduction. At this time, posterior osteophytes were removed along with medial and lateral meniscus. A trial implant was placed with a correct sized tibia that was mentioned at the beginning of the dictation. A Joanna size 4 9 mm PS X3 polyethylene insert was then placed. The patient's knee was brought through range of motion. The patella was tracking centrally and was stable to varus and valgus stress. Alignment was found to be roughly at 0 degrees. The tibia was stamped and drilled in proper rotation. All cut surfaces were irrigated and dried. The universal tibial base plate was impacted in place. Next, the Joanna size 4 cemented PS femur impacted into place and the Beckley size 4 9 mm PS X3 polyethylene insert was placed. The patient's knee was brought into full extension. The patella was then press-fit in place at this time. One liter dilute Betadine solution was irrigated through the knee along with 3 L of pulse lavage irrigation with Ancef. Periarticular injection was then completed. The patient's knee was brought through a range of motion. Once the cement had time to set up and it was found to be stable to varus valgus stress, the patella was tracking centrally with full range of motion. At this time, a #2 barbed suture was used for closure of the medial parapatellar arthrotomy. Topical tranexamic acid was placed. 2-0 Vicryl was used subcutaneously, Prineo was used for the skin. The patient tolerated the procedure well and was sent to the PACU in stable condition. HENRY /[id number] ELIZABET
== END 2019-08-08 17:11 | disposition home or self-care (01) ==
LOC: JD.SDS 06:50 → JD.MS 06:50 → JD.SDS 06:53 → JD.MS 06:53 → JD.SDS 09:30 → JD.MS 09:30 → UNDOADMIN 09:32 → JD.SDS 08-08 17:11
PROVIDERS: ATTEND Orthopaedic Surgery
DX: M17.12 Unilateral primary osteoarthritis, left knee (principal); K21.9 Gastro-esophageal reflux disease without esophagitis; I10 Essential (primary) hypertension; G47.33 Obstructive sleep apnea (adult) (pediatric); J30.2 Other seasonal allergic rhinitis; Z99.89 Dependence on other enabling machines and devices; Z88.2 Allergy status to sulfonamides; Z79.899 Other long term (current) drug therapy
CPT/HCPCS: 01402; 36415; 64450; 73560-26-LT; 73560-LT; 80053; 85027; 87641; 97110-GP; 97116-GP; 97161-GP; 97165-GO; 97535-GO; A9270-GY; C1713; C1776; J0171; J0690; J1885; J2001; J2370; J2405; J2704; J2795; J3370; J3490; J7040; J7120

== ENCOUNTER 2020-07-17 09:42 | Emergency (ER) | payer MEDICARE, OTHER ==
[2020-07-17 09:56] VITALS: BP 151/82
[2020-07-17] MEDS ORDERED: Sodium Chloride 0.9% 10 ML Syringe FLUSH PRN (10:35)
[2020-07-17] MEDS ORDERED: Sodium Chloride 0.9% 1,000 ML IV SCH (10:45)
--- NOTE | 2020-07-17 11:05 | EDM.PDOC ---
ED HPI GENERAL MEDICAL PROBLEM - General Chief Complaint: General Stated Complaint: [facility] Time Seen by Provider: 07/17/20 10:31 Source of Information: Reports: Patient, EMS, RN Notes Reviewed - History of Present Illness INITIAL COMMENTS - FREE TEXT/NARRATIVE: 79 yr old female passed out early this past morning about 9 to 10 hrs ago. She was up to the bathroom, started feeling weak, dizzy, lightheaded and than later woke up lying on the floor. She feels that she hit the back of head. Very mild [place]. There has been no nausea or vomiting. No chest pain, cough or difficulty breathing. No fever or chills. She has had some vertigo this morning since falling. Treatments MEDICAL INVESTIGATOR: Reports: IV/IO Headache Pain Score (Numeric/FACES): 4 - Related Data Allergies Allergy/AdvReac Type Severity Reaction Status Date / Time Sulfa (Sulfonamide Allergy Hives Verified 07/17/20 09:55 Antibiotics) Home Meds: Home Meds Cholecalciferol (Vitamin D3) [Vitamin D3] 5,000 unit PO DAILY 08/04/19 [History] Losartan Potassium 50 mg PO DAILY 08/04/19 [History] Magnesium 2 tab PO DAILY 08/04/19 [History] Ubidecarenone [Coq-10] 100 mg PO DAILY 08/04/19 [History] hydroCHLOROthiazide [Hydrochlorothiazide] 12.5 mg PO DAILY 08/04/19 [History] Meclizine [Antivert] 12.5 mg PO BID #14 tab 07/17/20 [Rx] Meloxicam 0 mg PO DAILY PRN 07/17/20 [History] Multivitamin 1 each PO DAILY 07/17/20 [History] [place]-3/DHA/Epa/Fish Oil [Fish Oil 1,000 mg Softgel] 1 each PO DAILY 07/17/20 [History] Past Medical History HEENT History: Reports: Allergic Rhinitis, Other (See Below) Other HEENT History: sinus congestion Cardiovascular History: Reports: Blood Clots/VTE/DVT, Hypertension Other Cardiovascular History: edema, peripheral artery disease Respiratory History: Reports: Sleep Apnea Other Respiratory History: elevated d-dimer, PE Gastrointestinal History: Reports: GERD, Hiatal Hernia Genitourinary History: Reports: None CRM SPECIALIST History: Reports: None Musculoskeletal History: Reports: Arthritis, Other (See Below) Other Musculoskeletal History: left knee issues; back surgery, lumbar back pain, knee pain, left heel pain Neurological History: Reports: None Psychiatric History: Reports: None Endocrine/Metabolic History: Reports: None Hematologic History: Reports: None Immunologic History: Reports: None Oncologic (Cancer) History: Reports: None Dermatologic History: Reports: Other (See Below) Other Dermatologic History: actinic keratosis, skin lesion, skin tag - Infectious Disease History Infectious Disease History: Reports: Chicken Pox, Measles, Shingles - Past Surgical History HEENT Surgical History: Reports: Cataract Surgery GI Surgical History: Reports: Appendectomy, Colonoscopy Female Surgical History: Reports: Section, Hysterectomy, Tubal Ligation Neurological Surgical History: Reports: Lumbar Spine Musculoskeletal Surgical History: Reports: Knee Replacement, Other (See Below) Other Musculoskeletal Surgeries/Procedures:: Right Toe Surgery Social & Family History - Family History Family Medical History: Noncontributory - Tobacco Use Tobacco Use Status *Q: Never Tobacco User - Caffeine Use Caffeine Use: Reports: Coffee - Recreational Drug Use Recreational Drug Use: No ED ROS GENERAL - Review of Systems Review Of Systems: See Below Constitutional: Denies: Fever, Chills HEENT: Reports: Other (Pt feels she has swelling post. scalp. ) Respiratory: Denies: Shortness of Breath Cardiovascular: Denies: Chest Pain GI/Abdominal: Denies: Abdominal Pain, Diarrhea, Nausea, Vomiting Musculoskeletal: Denies: Shoulder Pain, Arm Pain Skin: Denies: Bruising Neurological: Reports: Dizziness. Denies: Numbness, Tingling, Trouble Speaking, Weakness ED EXAM, GENERAL - Physical Exam Exam: See Below General Appearance: Alert, No Apparent Distress Eye Exam: Bilateral Eye: PERRL Ears: Normal External Exam, Normal Canal Nose: Normal Inspection Head: Other (area of mild swelling post. scalp) Neck: Supple, Non-Tender Respiratory/Chest: No Respiratory Distress, Lungs Clear, Normal Breath Sounds Cardiovascular: Regular Rate, Rhythm GI/Abdominal: Soft, Non-Tender Extremities: Normal Inspection, Normal Range of Motion, Other (pelvis , hips nontender) Skin Exam: Warm, Dry, Normal Color #1 Interpretation EKG Date: 07/17/20 Rhythm: NSR [place]: Normal P-Wave: Present QRS: Normal ST-T: Other (mild nonspecific changes) Course - Vital Signs Last Recorded V/S: Last Vital Signs Temp 97 F 07/17/20 09:51 Pulse 91 07/17/20 16:45 Resp 18 07/17/20 16:45 BP 151/82 H 07/17/20 09:51 Pulse Ox 97 07/17/20 16:45 - Orders/Labs/Meds Labs: Laboratory Tests 07/17/20 07/17/20 07/17/20 Range/Units 11:08 11:08 11:08 WBC 3.74 L (3.98-10.04) K/mm3 RBC 4.74 (3.98-5.22) M/mm3 Hgb 14.3 D (11.2-15.7) gm/dl Hct 43.3 (34.1-44.9) % MCV 91.4 D (79.4-94.8) fl MCH 30.2 (25.6-32.2) pg MCHC 33.0 (32.2-35.5) g/dl RDW Std Deviation 43.2 (36.4-46.3) fL Plt Count 242 (182-369) K/mm3 MPV 9.8 (9.4-12.3) fl Neut % (Auto) 83.7 H (34.0-71.1) % Lymph % (Auto) 9.6 L (19.3-51.7) % [place] % (Auto) 6.4 (4.7-12.5) % Eos % (Auto) 0 L (0.7-5.8) Baso % (Auto) 0.3 (0.1-1.2) % Neut # (Auto) 3.13 (1.56-6.13) K/mm3 Lymph # (Auto) 0.36 L (1.18-3.74) K/mm3 [place] # (Auto) 0.24 (0.24-0.36) K/mm3 Eos # (Auto) 0.00 L (0.04-0.36) K/mm3 Baso # (Auto) 0.01 (0.01-0.08) K/mm3 D-Dimer, Quantitative 0.79 H (0.19-0.50) mg/L Sodium (136-145) mEq/L Potassium (3.5-5.1) mEq/L Chloride (98-107) mEq/L Carbon Dioxide (21-32) mEq/L Anion Gap (5-15) BUN (7-18) mg/dL Creatinine (0.55-1.02) mg/dL Est Cr Clr Drug Dosing mL/min Estimated GFR (MDRD) (>60) mL/min BUN/Creatinine Ratio (14-18) Glucose (83-115) mg/dL Calcium (8.5-10.1) mg/dL Ferritin (8-252) ng/ml Total Bilirubin (0.2-1.0) mg/dL AST (15-37) U/L ALT (14-59) U/L Alkaline Phosphatase (46-116) U/L Lactate Dehydrogenase (81-234) U/L Troponin I (0.00-0.056) ng/mL C-Reactive Protein 0.4 (<1.0) mg/dL Total Protein (6.4-8.2) g/dl Albumin (3.4-5.0) g/dl Globulin gm/dL Albumin/Globulin Ratio (1-2) 07/17/20 07/17/20 Range/Units 11:08 11:08 WBC (3.98-10.04) K/mm3 RBC (3.98-5.22) M/mm3 Hgb (11.2-15.7) gm/dl Hct (34.1-44.9) % MCV (79.4-94.8) fl MCH (25.6-32.2) pg MCHC (32.2-35.5) g/dl RDW Std Deviation (36.4-46.3) fL Plt Count (182-369) K/mm3 MPV (9.4-12.3) fl Neut % (Auto) (34.0-71.1) % Lymph % (Auto) (19.3-51.7) % [place] % (Auto) (4.7-12.5) % Eos % (Auto) (0.7-5.8) Baso % (Auto) (0.1-1.2) % Neut # (Auto) (1.56-6.13) K/mm3 Lymph # (Auto) (1.18-3.74) K/mm3 [place] # (Auto) (0.24-0.36) K/mm3 Eos # (Auto) (0.04-0.36) K/mm3 Baso # (Auto) (0.01-0.08) K/mm3 D-Dimer, Quantitative (0.19-0.50) mg/L Sodium 139 (136-145) mEq/L Potassium 3.8 (3.5-5.1) mEq/L Chloride 100 (98-107) mEq/L Carbon Dioxide 28 (21-32) mEq/L Anion Gap 14.8 (5-15) BUN 11 (7-18) mg/dL Creatinine 0.7 (0.55-1.02) mg/dL Est Cr Clr Drug Dosing 52.14 mL/min Estimated GFR (MDRD) > 60 (>60) mL/min BUN/Creatinine Ratio 15.7 (14-18) Glucose 115 (83-115) mg/dL Calcium 8.6 (8.5-10.1) mg/dL Ferritin 69 (8-252) ng/ml Total Bilirubin 0.3 (0.2-1.0) mg/dL AST 35 (15-37) U/L ALT 50 (14-59) U/L Alkaline Phosphatase 100 (46-116) U/L Lactate Dehydrogenase 181 (81-234) U/L Troponin I < 0.017 (0.00-0.056) ng/mL C-Reactive Protein (<1.0) mg/dL Total Protein 6.9 (6.4-8.2) g/dl Albumin 3.4 (3.4-5.0) g/dl Globulin 3.5 gm/dL Albumin/Globulin Ratio 1.0 (1-2) Meds: Medications Discontinued Medications Generic Name Dose Route Start Last Admin Trade Name Bert PRN Reason Stop Dose Admin Diazepam 1 mg 07/17/20 12:39 07/17/20 13:40 Valium IVPUSH 07/17/20 12:40 1 mg ONETIME ONE Administration Sodium Chloride 1,000 mls @ 999 mls/hr 07/17/20 10:45 07/17/20 11:09 Normal Saline IV 999 mls/hr ONETIME JEREMIAH Administration Meclizine HCl 12.5 mg 07/17/20 12:39 07/17/20 13:37 Antivert PO 07/17/20 12:40 12.5 mg ONETIME ONE Administration Methylprednisolone Sodium Succinate 75 mg 07/17/20 12:40 07/17/20 13:44 Solu-Medrol IVPUSH 07/17/20 12:41 75 mg ONETIME ONE Administration Sodium Chloride 10 ml 07/17/20 10:35 07/17/20 11:09 Saline Flush FLUSH 10 ml ASDIRECTED PRN Administration Keep Vein Open - Re-Assessments/Exams Free Text/Narrative Re-Assessment/Exam: 07/18/20 17:[address] was normal, labs relatively good, have given Meds and IV fluid, feeling better at time of discharge. Departure - Departure Time of Disposition: 14:24 Disposition: Home, Self-Care 01 Condition: Fair Clinical Impression: Fall, Syncope, Scalp contusion - Discharge Information Prescriptions: Meclizine [Antivert] 12.5 mg PO BID #14 tab Instructions: Facial or Scalp Contusion, [id number], Syncope, [id number] Referrals: PCP,None [Ordering Only Provider] - Forms: ED Department Discharge Additional Instructions: Rest. Move slowly and carefully as discussed. Antivert 12.5 mg twice daily for 3 to 5 days, prescription has been sent electronically to [facility]. Antivert twice daily thereafter if needed for any further vertigo. Follow up clinic if not back to normal within 3 to 5 days as expected. Return to ED as needed if symptoms worsening in any way. Sepsis Event Note (ED) - Evaluation Sepsis Screening Result: No Definite Risk
[2020-07-17] MEDS ORDERED: Meclizine 12.5 MG Tab PO ONE (12:39)
[2020-07-17] MEDS ORDERED: methylPREDNISolone Sodium Succinate 125 MG/2 ML SDV IVPUSH ONE (12:40)
[2020-07-17 17:24] VITALS: PULSE 91
== END 2020-07-17 16:45 | disposition home or self-care (01) ==
LOC: JD.ED 09:42
DX: R55 Syncope and collapse (principal); S00.03XA Contusion of scalp, initial encounter; U07.1 COVID-19; I10 Essential (primary) hypertension; Z79.899 Other long term (current) drug therapy; M19.90 Unspecified osteoarthritis, unspecified site; Z88.2 Allergy status to sulfonamides; W22.8XXA Striking against or struck by other objects, initial encounter
CPT/HCPCS: 36415; 70450; 71045; 80053; 82728; 83615; 84484; 85025; 85379; 86140; 93005; 96374; 96375; 99285; A9270; J2930; J3360; J7030; U0002; 93010; 99284

== ENCOUNTER → 2020-10-24 | Day surgery (SDC) | payer MEDICARE, OTHER ==
[~2020-10-24] MED LIST changes: -Acetaminophen 325 MG Tab PO SCH; -Cyclobenzaprine 10 MG Tab PO PRN; +Lactated Ringers 1,000 ML IV SCH; +Lidocaine 1% 4 ML ONE; -Pregabalin 25 MG Cap PO SCH; +Propofol 200 MG/20 ML SDV ONE; +Scopolamine 1.5 MG Transdermal Patch TOP SCH; -oxyCODONE ER 10 MG TAB.ER PO SCH
--- NOTE | 2020-10-24 08:41 | PCM.PREANE ---
Preanesthetic Assessment - Procedure Proposed Procedure: EGD - Anesthesia/Transfusion/Family Hx Anesthesia History: Prior Anesthesia Without Reaction Family History of Anesthesia Reaction: No Transfusion History: No Prior Transfusion(s) Intubation History: Unknown - Review of Systems General: Fatigue, Malaise Pulmonary: No Symptoms Cardiovascular: No Symptoms Gastrointestinal: Abdominal Pain ("stomach up into throat"), Nausea Neurological: No Symptoms Other: Reports: Throat Pain (burning) - Physical Assessment NPO Status Date: 10/23/20 NPO Status Time: 00:00 Height: 1.57 m Weight: 67 kg ASA Class: 2 Mental Status: Alert & Oriented x3 Airway Class: Mallampati = 2 Dentition: Reports: [place](s) Thyro-Mental Finger Breadths: 3 Mouth Opening Finger Breadths: 3 ROM/Head Extension: Full Lungs: Clear to Auscultation, Normal Respiratory Effort Cardiovascular: Regular Rate, Regular Rhythm - Allergies Allergies/Adverse Reactions: Allergies Allergy/AdvReac Type Severity Reaction Status Date / Time Sulfa (Sulfonamide Allergy Hives Verified 10/23/20 14:01 Antibiotics) - Blood Blood Available: No Product(s) Available: None - Anesthesia Plan Pre-Op Medication Ordered: None - Acknowledgements Anesthesia Type Planned: MAC Pt an Appropriate Candidate for the Planned Anesthesia: Yes Alternatives and Risks of Anesthesia Discussed w Pt/Guardian: Yes Pt/Guardian Understands and Agrees with Anesthesia Plan: Yes PreAnesthesia Questionnaire HEENT History: Reports: Allergic Rhinitis, Cataract, Impaired Vision, Sinusitis, Other (See Below) Other HEENT History: sinus congestion, wears glasses Cardiovascular History: Reports: Blood Clots/VTE/DVT, Hypertension Other Cardiovascular History: edema, peripheral artery disease Respiratory History: Reports: PE, Sleep Apnea Other Respiratory History: elevated d-dimer, PE Gastrointestinal History: Reports: Chronic Constipation, GERD, Hiatal Hernia, Other (See Below) Other Gastrointestinal History: nausea and vomiting, RUQ pain, gastric ulcer Genitourinary History: Reports: Other (See Below) Other Genitourinary History: hematuria TREE MARKER History: Reports: None Musculoskeletal History: Reports: Arthritis, Back Pain, Chronic, Osteoarthritis, Other (See Below) Other Musculoskeletal History: left knee issues; back surgery, lumbar back pain, knee pain, left heel pain Neurological History: Reports: Vertigo Psychiatric History: Reports: None Endocrine/Metabolic History: Reports: None Hematologic History: Reports: Bleeding Disorder Immunologic History: Reports: None Oncologic (Cancer) History: Reports: None Dermatologic History: Reports: Other (See Below) Other Dermatologic History: actinic keratosis, skin lesion, skin tag - Infectious Disease History Infectious Disease History: Reports: Chicken Pox, Measles, Shingles - Past Surgical History Head Surgeries/Procedures: Reports: None HEENT Surgical History: Reports: Cataract Surgery Cardiovascular Surgical History: Reports: None Respiratory Surgical History: Reports: None GI Surgical History: Reports: Appendectomy, Colonoscopy Female Surgical History: Reports: Section, Hysterectomy, Tubal Ligation Male Surgical History: Reports: None Endocrine Surgical History: Reports: None Neurological Surgical History: Reports: Lumbar Spine Musculoskeletal Surgical History: Reports: Knee Replacement, Other (See Below) Other Musculoskeletal Surgeries/Procedures:: Right Toe Surgery Oncologic Surgical History: Reports: None Dermatological Surgical History: Reports: None - SUBSTANCE USE Tobacco Use Status *Q: Never Tobacco User Tobacco Use Within Last Twelve Months: No Second Hand Smoke Exposure: No Days Per Week of Alcohol Use: 0 Number of Drinks Per Day: 0 Total Drinks Per Week: 0 Recreational Drug Use History: No - HOME MEDS Home Medications: Home Meds Cholecalciferol (Vitamin D3) [Vitamin D3] 5,000 unit PO DAILY 08/04/19 [History] Losartan Potassium 50 mg PO DAILY 08/04/19 [History] Magnesium 2 tab PO DAILY 08/04/19 [History] Ubidecarenone [Coq-10] 100 mg PO DAILY 08/04/19 [History] [place]-3/DHA/Epa/Fish Oil [Fish Oil 1,000 mg Softgel] 1 each PO DAILY 07/17/20 [History] Aspirin 81 mg PO DAILY 10/23/20 [History] Docusate Sodium [Colace] 100 mg PO BID 10/23/20 [History] Famotidine [Pepcid] 40 mg PO DAILY 10/23/20 [History] Lutein/Minerals/Vit A,C & E [Ocuvite] 1 tab PO DAILY 10/23/20 [History] Omeprazole Magnesium [Prilosec Otc] 20 mg PO DAILY PRN 10/23/20 [History] levOCARNitine tartrate [l-Carnitine] 500 mg PO DAILY 10/23/20 [History] - CURRENT (IN HOUSE) MEDS Current Meds: Current Medications Lactated Ringer's (Ringers, Lactated) 1,000 mls @ 125 mls/hr IV ASDIRECTED JEREMIAH Stop: 10/24/20 23:00 Lidocaine/Sodium Bicarbonate (Buffered Lidocaine 1% In Ns 8.4%) 0.25 ml IDERM ONETIME PRN PRN Reason: Prior to IV Start Stop: 10/24/20 18:00 Scopolamine (Transderm-Scop) 1.5 mg TOP ONETIME JEREMIAH Stop: 10/24/20 13:00 Sodium Chloride (Saline Flush) 10 ml FLUSH ASDIRECTED PRN PRN Reason: Keep Vein Open Stop: 10/24/20 18:00
--- NOTE | 2020-10-24 09:33 | PCM48HPAN ---
Post Anesthesia Note - EVALUATION WITHIN 48HRS OF ANESTHETIC Vital Signs in Normal Range: Yes Patient Participated in Evaluation: Yes Respiratory Function Stable: Yes Airway Patent: Yes Cardiovascular Function Stable: Yes Hydration Status Stable: Yes Pain Control Satisfactory: Yes Nausea and Vomiting Control Satisfactory: Yes Mental Status Recovered: Yes Vital Signs: Last Vital Signs Temp 36.8 C 10/24/20 09:25 Pulse 77 10/24/20 09:25 Resp 14 10/24/20 09:25 BP 121/66 10/24/20 09:25 Pulse Ox 98 10/24/20 09:25 - COMMENTS/OBSERVATIONS Free Text/Narrative:: NO ANESTHESIA COMPLICATIONS NOTED
[2020-10-24 10:42] VITALS: BP 146/69; PULSE 75
--- NOTE | 2020-10-24 10:45 | PCM.PRNOTE ---
- Free Text/Narrative Note: Date: 10/24/2020 Procedure: diagnostic esophagogastroduodenoscopy Indication: reflux symptoms, bloating Endoscopist: Christopher Aguilar MD Findings: large amount of solid food retained within the stomach. Small hiatal hernia. Otherwise normal findings. Detailed Report: The patient was taken to the endoscopy suite and placed in left lateral decubitus position. Monitored anesthesia care was initiated, and timeout was performed. A bite-block was placed. The endoscope was inserted into the mouth and advanced to second portion of the duodenum with ease. Duodenal mucosa appeared normal. A sample of duodenal mucosa was obtained with cold forceps. Scope was then withdrawn into the distal portion of the stomach. The pylorus appeared normal. There is a large amount of retained solid food within the stomach. The incisura appeared normal without evidence of ulceration. On retroflexion, there was a small sliding hiatal hernia noted. The scope was then withdrawn into the distal esophagus. There appeared to be some mild inflammatory change around the Z-line. Samples of the gastroesophageal junction and distal esophageal mucosa were obtained. Air was suctioned from the stomach and the scope was withdrawn. The patient tolerated the procedure well. Suspect diagnosis of gastroparesis; a gastric emptying study is ordered for next week.
== END | disposition home or self-care (01) ==
LOC: JD.SDS 08:01
PROVIDERS: ATTEND Surgery
DX: K29.50 Unspecified chronic gastritis without bleeding (principal); K21.9 Gastro-esophageal reflux disease without esophagitis; K44.9 Diaphragmatic hernia without obstruction or gangrene; K31.89 Other diseases of stomach and duodenum; E78.00 Pure hypercholesterolemia, unspecified; G47.33 Obstructive sleep apnea (adult) (pediatric); I73.9 Peripheral vascular disease, unspecified; Z88.2 Allergy status to sulfonamides; Z79.82 Long term (current) use of aspirin; Z79.899 Other long term (current) drug therapy; Z90.49 Acquired absence of other specified parts of digestive tract; Z98.890 Other specified postprocedural states
CPT/HCPCS: 43239; A9270; J2001; J2704; J7120; 00731; 88305

== ENCOUNTER 2023-06-26 16:37 | Emergency (ER) | payer MEDICARE, OTHER ==
[2023-06-26] MEDS ORDERED: Bupivacaine 0.5% 10 ML SDV INJECT ONE (17:09)
[2023-06-26] MEDS ORDERED: Triamcinolone Acetonide 40 MG/ML 1 ML SDV INJECT ONE (17:09)
[2023-06-26 17:35] VITALS: BP 150/75; PULSE 82
== END 2023-06-26 19:22 | disposition home or self-care (01) ==
LOC: JD.ED 16:37
DX: M77.8 Other enthesopathies, not elsewhere classified (principal); I10 Essential (primary) hypertension; K21.9 Gastro-esophageal reflux disease without esophagitis; M19.90 Unspecified osteoarthritis, unspecified site; Z79.82 Long term (current) use of aspirin; Z79.899 Other long term (current) drug therapy; Z88.2 Allergy status to sulfonamides
CPT/HCPCS: 36415; 84484; 93005; 96372; 99283; J3301; J3490; 93010; 99284